=== PATIENT | male | born 1945 | race Caucasian/White ===

== ENCOUNTER 2018-08-15 17:32 | Inpatient (IN) | payer MEDICARE ==
[2018-08-15 17:54] LABS: ADD MAN DIFF? NO
[2018-08-15 17:59] LABS: BASOPHILS % 0.6 % (0.0-2.0); EOSINOPHILS % 0.1 % (0.0-7.0); HEMATOCRIT 42.1 % (42.0-52.0); HEMOGLOBIN 13.2 g/dl (14.0-18.0); LYMPHOCYTES # 0.7 10^3/ul (0.8-2.9); MEAN CORPUSCULAR HEMOGLOBIN 28.8 pg (29.0-33.0); MEAN CORPUSCULAR HGB CONC 31.4 g/dl (32.0-37.0); MEAN CORPUSCULAR VOLUME 91.7 fl (82.0-101.0); MEAN PLATELET VOLUME 10.4 fl (7.4-10.4); MONOCYTE # 0.4 10^3/ul (0.3-0.9); MONOCYTES % 5.3 % (0.0-11.0); NEUTROPHIL # 5.7 10^3/ul (1.6-7.5); NEUTROPHILS % 83.7 % (39.0-77.0); PLATELET COUNT 219 10^3/UL (140-415); RED BLOOD COUNT 4.59 10^6/ul (4.70-6.10); RED CELL DISTRIBUTION WIDTH 14.6 % (11.5-14.5)
[2018-08-15 17:59] LABS: WHITE BLOOD COUNT 6.8 10^3/ul (4.8-10.8)
[2018-08-15] MEDS: LACTATED RINGER'S 1,000 ML IV (18:03)
[2018-08-15 18:13] LABS: ADD UMIC YES; UR ASCORBIC ACID NEGATIVE (NEGATIVE); UR BILIRUBIN (Dip) NEGATIVE (NEGATIVE); UR BLOOD (Dip) NEGATIVE (NEGATIVE); UR CLARITY CLEAR (CLEAR); UR COLOR YELLOW (YELLOW); UR GLUCOSE (Dip) NEGATIVE (NEGATIVE); UR HYALINE CAST FEW /HPF (NONE SEEN); UR KETONES (Dip) 2+ mg/dL (NEGATIVE); UR LEUKOCYTE ESTERASE (Dip) NEGATIVE Leu/ul (NEGATIVE); UR MUCUS FEW /HPF (NONE SEEN); UR NITRITE (Dip) NEGATIVE (NEGATIVE); UR RBC 1 /HPF (0-5); UR SPECIFIC GRAVITY (Dip) 1.018 (1.003-1.030); UR TOTAL PROTEIN (Dip) 1+ mg/dl (NEGATIVE); UR UROBILINOGEN (Dip) NEGATIVE (NEGATIVE); UR WBC 1 /HPF (0-5)
[2018-08-15 18:18] LABS: INR 0.97; PARTIAL THROMBOPLASTIN TIME 31.9 Sec (23.0-35.0)
[2018-08-15 19:31] LABS: Allen Test ACCEPTAB; Arterial Base Excess -10.6 mmol/L (-3.0-3); Arterial Blood Gas Oxygen Sat 99.2 mmHG (95.0-100.0); Arterial COHb 0.5 % (0.0-3.0); Arterial Fraction of Oxyhgb 98.4 % (93.0-99.0); Arterial HCO3 15.2 mmol/L (22.0-26.0); Arterial MetHb 0.3 % (0.0-1.5); Arterial Total Hemglobin 13.3 g/dl (12.0-18.0); Arterial pCO2 33.8 mmhg (35-45); MODE NASAL CANNULA; Site Right Radial
[2018-08-15 21:21] LABS: ALANINE AMINOTRANSFERASE 14 IU/L (13-69); ALBUMIN 3.9 g/dl (3.3-4.9); ALBUMIN/GLOBULIN RATIO 1.08; ALKALINE PHOSPHATASE 66 IU/L (42-121); ANION GAP 16 (5-13); ASPARTATE AMINO TRANSFERASE 25 IU/L (15-46); BILIRUBIN,INDIRECT 0.2 mg/dl (0-1.1); BILIRUBIN,TOTAL 0.2 mg/dl (0.2-1.3); BLOOD UREA NITROGEN 8 mg/dl (7-20); CALCIUM 9.4 mg/dl (8.4-10.2); CARBON DIOXIDE 18 mmol/L (21-31); CHLORIDE 106 mmol/L (97-110); CREATININE 0.15 mg/dl (0.61-1.24); GLUCOSE 109 mg/dl (70-220); LIPASE 40 U/L (23-300); POTASSIUM 3.8 mmol/L (3.5-5.1); SODIUM 140 mmol/L (135-144); TOTAL PROTEIN 7.5 g/dl (6.1-8.1)
[2018-08-15 21:34] LABS: TROPONIN-I 0.027 ng/ml (0.000-0.120)
[2018-08-15] MEDS ORDERED: ACETAMINOPHEN 325 MG TAB PO (23:00)
[2018-08-15] MEDS ORDERED: ONDANSETRON 4 MG INJ IV (23:00)
[2018-08-15] MEDS: IPRATROPIUM 0.03% 30 ML NASAL SPRAY NASAL (23:00)
[2018-08-15] MEDS ORDERED: HYDROCODONE/APAP (10/325) TAB PO (23:00)
[2018-08-15] MEDS ORDERED: NACL 0.9% 3 ML SYG IV (23:00)
[2018-08-16] MEDS: DEXTROSE 5%-0.45% NACL 1,000 ML IV ×3 (00:45→23:44)
[2018-08-16] MEDS: PANTOPRAZOLE (EC) 40 MG TAB PO (05:46)
[2018-08-16 07:17] LABS: ADD MAN DIFF? NO
[2018-08-16 07:21] LABS: BASOPHIL # 0.1 10^3/ul (0.0-0.1); BASOPHILS % 0.4 % (0.0-2.0); HEMOGLOBIN 12.6 g/dl (14.0-18.0); LYMPHOCYTES # 0.7 10^3/ul (0.8-2.9); MEAN CORPUSCULAR HGB CONC 30.7 g/dl (32.0-37.0); MEAN CORPUSCULAR VOLUME 94.3 fl (82.0-101.0); MEAN PLATELET VOLUME 10.7 fl (7.4-10.4); MONOCYTE # 0.7 10^3/ul (0.3-0.9); MONOCYTES % 5.1 % (0.0-11.0); PLATELET COUNT 220 10^3/UL (140-415); RED BLOOD COUNT 4.35 10^6/ul (4.70-6.10); RED CELL DISTRIBUTION WIDTH 14.6 % (11.5-14.5)
[2018-08-16 07:21] LABS: WHITE BLOOD COUNT 13.5 10^3/ul (4.8-10.8)
[2018-08-16] MEDS: LEVOTHYROXINE 50 MCG TAB PO (07:25)
[2018-08-16 07:52] LABS: ALANINE AMINOTRANSFERASE 12 IU/L (13-69); ALBUMIN/GLOBULIN RATIO 1.37; ALKALINE PHOSPHATASE 70 IU/L (42-121); ANION GAP 22 (5-13); ASPARTATE AMINO TRANSFERASE 24 IU/L (15-46); BILIRUBIN,INDIRECT 0.1 mg/dl (0-1.1); BILIRUBIN,TOTAL 0.1 mg/dl (0.2-1.3); BLOOD UREA NITROGEN 7 mg/dl (7-20); CALCIUM 9.5 mg/dl (8.4-10.2); CARBON DIOXIDE 13 mmol/L (21-31); CHLORIDE 106 mmol/L (97-110); CHOL/HDL RATIO 2.7 RATIO; CHOLESTEROL 157 mg/dl (100-200); CREATININE 0.17 mg/dl (0.61-1.24); GLUCOSE 203 mg/dl (70-220); HDL CHOLESTEROL 57 mg/dl (31-75); LDL CHOLESTEROL,CALCULATED 77 mg/dl; MAGNESIUM 1.7 mg/dl (1.7-2.5); PHOSPHORUS 2.7 mg/dl (2.5-4.9); POTASSIUM 3.3 mmol/L (3.5-5.1); SODIUM 141 mmol/L (135-144); TOTAL PROTEIN 6.9 g/dl (6.1-8.1); TRIGLYCERIDES 115 mg/dl (0-149)
[2018-08-16] MEDS ORDERED: HEPARIN 5,000 UNIT/0.5 ML VIAL (08:38)
[2018-08-16] MEDS: BETAMETHASONE/CLOTRIMAZOLE 15 GM CR TOP ×2 (08:40→20:57)
[2018-08-16] MEDS: IPRATROPIUM 0.03% 30 ML NASAL SPRAY NASAL ×2 (08:40→20:56)
[2018-08-16] MEDS: NYSTATIN 15 GM CR TOP ×2 (08:42→20:57)
[2018-08-16] MEDS: HEPARIN 5,000 UNIT/1 ML VIAL SC (08:49)
[2018-08-16] MEDS: GABAPENTIN 300 MG CAP PO ×2 (09:00→20:36)
[2018-08-16] MEDS: MULTIVITAMINS THERAPEUTIC TAB PO (09:00)
[2018-08-16] MEDS: METOPROLOL (XL) 25 MG TAB PO ×2 (09:00→20:36)
[2018-08-16] MEDS: CITALOPRAM 20 MG TAB PO (09:00)
[2018-08-16 09:33] LABS: AADO2 Arterial 19.9 mmHg (7.0-24.0); Allen Test ACCEPTAB; Arterial Base Excess -8.6 mmol/L (-3.0-3); Arterial Blood Gas Oxygen Sat 97.7 mmHG (95.0-100.0); Arterial COHb 0.5 % (0.0-3.0); Arterial Fraction of Oxyhgb 96.8 % (93.0-99.0); Arterial HCO3 18.4 mmol/L (22.0-26.0); Arterial MetHb 0.4 % (0.0-1.5); Arterial Total Hemglobin 12.9 g/dl (12.0-18.0); Arterial pCO2 43.7 mmhg (35-45); MODE NASAL CANNULA; Site Right Radial
[2018-08-16] MEDS: METHYLPREDNISOLONE 125 MG INJ IV (10:54)
[2018-08-16] MEDS: ALBUTEROL/IPRATROPIUM (NEB) 3 ML AMP HHN (13:31)
[2018-08-16] MEDS: MAGNESIUM SULFATE 2 GM/50 ML 50 ML IVPB (15:33)
[2018-08-16] MEDS: POTASSIUM CHLORIDE 100 ML IVPB (17:10)
[2018-08-16] MEDS: IOHEXOL 100 ML (17:59)
[2018-08-16] MEDS: SOD CHLORIDE 0.9% 100 ML (17:59)
[2018-08-16] MEDS: LIDOCAINE 1% (MPF) 5 ML VIAL SC (19:30)
[2018-08-16] MEDS: ASPIRIN 81 MG TAB PO (20:36)
[2018-08-16] MEDS: ATORVASTATIN 20 MG TAB PO (20:36)
[2018-08-17] MEDS: PANTOPRAZOLE (EC) 40 MG TAB PO (05:33)
[2018-08-17] MEDS: LEVOTHYROXINE 50 MCG TAB PO (06:48)
[2018-08-17 07:01] LABS: ADD MAN DIFF? NO
[2018-08-17 07:05] LABS: WHITE BLOOD COUNT 9.2 10^3/ul (4.8-10.8)
[2018-08-17 07:05] LABS: ABNORMAL IP MESSAGE 1; BASOPHILS % 0.1 % (0.0-2.0); HEMATOCRIT 37.2 % (42.0-52.0); HEMOGLOBIN 11.9 g/dl (14.0-18.0); LYMPHOCYTES # 0.5 10^3/ul (0.8-2.9); LYMPHOCYTES % 5.4 % (15.0-51.0); MEAN CORPUSCULAR HEMOGLOBIN 29.1 pg (29.0-33.0); MEAN PLATELET VOLUME 10.6 fl (7.4-10.4); MONOCYTE # 0.7 10^3/ul (0.3-0.9); NEUTROPHILS % 86.3 % (39.0-77.0); PLATELET COUNT 200 10^3/UL (140-415); POSITIVE DIFF @See below; RED BLOOD COUNT 4.09 10^6/ul (4.70-6.10); RED CELL DISTRIBUTION WIDTH 14.8 % (11.5-14.5)
[2018-08-17 07:45] LABS: ALANINE AMINOTRANSFERASE 17 IU/L (13-69); ALBUMIN 3.5 g/dl (3.3-4.9); ALBUMIN/GLOBULIN RATIO 1.12; ALKALINE PHOSPHATASE 60 IU/L (42-121); ANION GAP 8 (5-13); ASPARTATE AMINO TRANSFERASE 19 IU/L (15-46); BILIRUBIN,INDIRECT 0.2 mg/dl (0-1.1); BILIRUBIN,TOTAL 0.2 mg/dl (0.2-1.3); BLOOD UREA NITROGEN 5 mg/dl (7-20); CALCIUM 9.3 mg/dl (8.4-10.2); CARBON DIOXIDE 28 mmol/L (21-31); CHLORIDE 106 mmol/L (97-110); GLUCOSE 187 mg/dl (70-220); MAGNESIUM 2.2 mg/dl (1.7-2.5); POTASSIUM 3.7 mmol/L (3.5-5.1); SODIUM 142 mmol/L (135-144); TOTAL PROTEIN 6.6 g/dl (6.1-8.1)
[2018-08-17 07:49] LABS: CREATININE < 0.15 mg/dl (0.61-1.24)
[2018-08-17] MEDS: CITALOPRAM 20 MG TAB PO (08:00)
[2018-08-17] MEDS: MULTIVITAMINS THERAPEUTIC TAB PO (08:01)
[2018-08-17] MEDS: METOPROLOL (XL) 25 MG TAB PO ×2 (08:01→21:00)
[2018-08-17] MEDS: GABAPENTIN 300 MG CAP PO ×2 (08:01→21:00)
[2018-08-17] MEDS: IPRATROPIUM 0.03% 30 ML NASAL SPRAY NASAL ×2 (08:25→21:38)
[2018-08-17] MEDS: BETAMETHASONE/CLOTRIMAZOLE 15 GM CR TOP ×2 (08:25→21:38)
[2018-08-17] MEDS: NYSTATIN 15 GM CR TOP ×2 (08:26→21:39)
[2018-08-17] MEDS: ENOXAPARIN 60 MG/0.6 ML SYG SC (08:37)
[2018-08-17] MEDS ORDERED: ENOXAPARIN 30 MG/0.3 ML SYG SC (09:00)
[2018-08-17] MEDS: DEXTROSE 5%-0.45% NACL 1,000 ML IV ×2 (09:44→19:44)
[2018-08-17] MEDS: ATORVASTATIN 20 MG TAB PO (21:00)
[2018-08-17] MEDS: ASPIRIN 81 MG TAB PO (21:00)
[2018-08-18] MEDS: DEXTROSE 5%-0.45% NACL 1,000 ML IV ×3 (03:16→14:19)
[2018-08-18] MEDS: PANTOPRAZOLE (EC) 40 MG TAB PO (05:08)
[2018-08-18] MEDS: LEVOTHYROXINE 50 MCG TAB PO (07:19)
[2018-08-18] MEDS: NYSTATIN 15 GM CR TOP ×2 (09:00→21:00)
[2018-08-18] MEDS: MULTIVITAMINS THERAPEUTIC TAB PO (09:00)
[2018-08-18] MEDS: GABAPENTIN 300 MG CAP PO ×2 (09:00→21:00)
[2018-08-18] MEDS: METOPROLOL (XL) 25 MG TAB PO ×2 (09:00→21:00)
[2018-08-18] MEDS: CITALOPRAM 20 MG TAB PO (09:00)
[2018-08-18] MEDS: ENOXAPARIN 40 MG/0.4 ML SYG SC (09:04)
[2018-08-18] MEDS: BALSAM PERU/CASTOR OIL 60 GM TUBE TOP (09:05)
[2018-08-18] MEDS: IPRATROPIUM 0.03% 30 ML NASAL SPRAY NASAL ×2 (09:05→21:32)
[2018-08-18] MEDS: BETAMETHASONE/CLOTRIMAZOLE 15 GM CR TOP ×2 (09:06→21:31)
[2018-08-18] MEDS: ATORVASTATIN 20 MG TAB PO (21:00)
[2018-08-18] MEDS: ASPIRIN 81 MG TAB PO (21:00)
[2018-08-19] MEDS: DEXTROSE 5%-0.45% NACL 1,000 ML IV (01:47)
[2018-08-19] MEDS: LEVOTHYROXINE 50 MCG TAB PO (05:36)
[2018-08-19] MEDS: PANTOPRAZOLE (EC) 40 MG TAB PO (05:36)
[2018-08-19 06:51] LABS: ANION GAP 10 (5-13); BLOOD UREA NITROGEN 4 mg/dl (7-20); CALCIUM 8.9 mg/dl (8.4-10.2); CARBON DIOXIDE 38 mmol/L (21-31); CHLORIDE 88 mmol/L (97-110); GLUCOSE 301 mg/dl (70-220); MAGNESIUM 1.6 mg/dl (1.7-2.5); PHOSPHORUS 1.4 mg/dl (2.5-4.9); SODIUM 136 mmol/L (135-144)
[2018-08-19 06:58] LABS: CREATININE < 0.15 mg/dl (0.61-1.24); POTASSIUM 1.7 mmol/L (3.5-5.1)
[2018-08-19 07:55] LABS: ANION GAP 13 (5-13); BLOOD UREA NITROGEN 3 mg/dl (7-20); CALCIUM 8.9 mg/dl (8.4-10.2); CARBON DIOXIDE 38 mmol/L (21-31); CHLORIDE 89 mmol/L (97-110); GLUCOSE 294 mg/dl (70-220); MAGNESIUM 1.7 mg/dl (1.7-2.5); SODIUM 140 mmol/L (135-144)
[2018-08-19 08:04] LABS: CREATININE < 0.15 mg/dl (0.61-1.24); POTASSIUM 1.7 mmol/L (3.5-5.1)
[2018-08-19] MEDS ORDERED: POTASSIUM CHLORIDE 100 ML IVPB (08:57)
[2018-08-19] MEDS: NYSTATIN 15 GM CR TOP ×2 (09:00→20:32)
[2018-08-19] MEDS: POTASSIUM CHLORIDE 100 ML IVPB ×4 (09:01→15:30)
[2018-08-19] MEDS: IPRATROPIUM 0.03% 30 ML NASAL SPRAY NASAL ×2 (10:05→21:00)
[2018-08-19] MEDS: BETAMETHASONE/CLOTRIMAZOLE 15 GM CR TOP ×2 (10:59→21:22)
[2018-08-19] MEDS: ENOXAPARIN 40 MG/0.4 ML SYG SC ×2 (11:00→14:00)
[2018-08-19] MEDS ORDERED: D5-NS + KCL 40 MEQ 1,000 ML IV (11:00)
[2018-08-19] MEDS: BALSAM PERU/CASTOR OIL 60 GM TUBE TOP (11:09)
[2018-08-19] MEDS: MAGNESIUM SULFATE 3 GM in DEXTROSE 5% 100 ML IVPB (11:51)
[2018-08-19] MEDS: SOD CHLORIDE 0.9% 1,000 ML IV ×2 (11:53→15:30)
[2018-08-19] MEDS: POTASSIUM CHLORIDE 40 MEQ in DEXTROSE 5%-0.9% NACL 1,000 ML IV ×2 (11:58→20:06)
[2018-08-19 12:14] LABS: Allen Test ACCEPTAB; Arterial Base Excess 5.6 mmol/L (-3.0-3); Arterial Blood Gas Oxygen Sat 98.9 mmHG (95.0-100.0); Arterial COHb 0.2 % (0.0-3.0); Arterial Fraction of Oxyhgb 98.2 % (93.0-99.0); Arterial HCO3 40.4 mmol/L (22.0-26.0); Arterial MetHb 0.5 % (0.0-1.5); Arterial Total Hemglobin 12.9 g/dl (12.0-18.0); Arterial pCO2 144.6 mmhg (35-45); MODE NASAL CANNULA; Site Right Radial
[2018-08-19] MEDS ORDERED: DEXTROSE 50% 50 ML SYRINGE IV ×2 (12:30)
[2018-08-19] MEDS ORDERED: GLUCOSE GEL 15 GRAM TUBE BUCCAL (12:30)
[2018-08-19] MEDS ORDERED: GLUCOSE GEL 15 GRAM TUBE PO ×2 (12:30)
[2018-08-19] MEDS ORDERED: GLUCAGON 1 MG INJ IM (12:30)
[2018-08-19] MEDS: INSULIN ASPART [NOVOLOG] 3 ML PEN SC ×3 (13:22→20:35)
[2018-08-19] MEDS: FENTAnyl (DRIP) 1000 mcg/100mL 100 ML IV (14:07)
[2018-08-19 14:23] LABS: LACTIC ACID 4.3 mmol/L (0.5-2.0)
[2018-08-19 14:28] LABS: AADO2 Arterial 283.2 mmHg (7.0-24.0); Allen Test ACCEPTAB; Arterial Base Excess 4.1 mmol/L (-3.0-3); Arterial Blood Gas Oxygen Sat 99.6 mmHG (95.0-100.0); Arterial COHb 0.1 % (0.0-3.0); Arterial Fraction of Oxyhgb 99.2 % (93.0-99.0); Arterial HCO3 28.4 mmol/L (22.0-26.0); Arterial MetHb 0.3 % (0.0-1.5); Arterial Total Hemglobin 12.7 g/dl (12.0-18.0); Arterial pCO2 41.2 mmhg (35-45); MODE VENT - AC; Site Right Radial
[2018-08-19] MEDS ORDERED: VANCOMYCIN IV PER PHARMACY XX (15:00)
[2018-08-19] MEDS: NORepinephrine 8MG/250 ML (PMX 250 ML IV (16:00)
[2018-08-19] MEDS: ETOMIDATE 20 MG INJ IV (16:00)
[2018-08-19] MEDS: SUCCINYLCHOLINE CHLORIDE 100 MG/5 ML SYG IV (16:00)
[2018-08-19] MEDS: VANCOMYCIN 1 GM 250 ML IVPB (16:56)
[2018-08-19] MEDS: PIPER-TAZO 3.375 GM IV (PMX) 100 ML IVPB ×2 (17:33→23:51)
[2018-08-19 19:08] LABS: ANION GAP 8 (5-13); CARBON DIOXIDE 29 mmol/L (21-31); CHLORIDE 97 mmol/L (97-110); SODIUM 134 mmol/L (135-144)
[2018-08-19 19:17] LABS: POTASSIUM 2.7 mmol/L (3.5-5.1)
[2018-08-19 19:18] LABS: LACTIC ACID 6.3 mmol/L (0.5-2.0)
[2018-08-19] MEDS: POTASSIUM CHLORIDE 50 ML IVPB ×3 (20:18→21:24)
[2018-08-19] MEDS ORDERED: PHENYLephrine 20MG IN 250 ML 250 ML (23:42)
[2018-08-19] MEDS: SOD CHLORIDE 0.9% 500 ML IV (23:52)
[2018-08-20 01:05] LABS: LACTIC ACID 7.9 mmol/L (0.5-2.0)
[2018-08-20] MEDS: INSULIN ASPART [NOVOLOG] 3 ML PEN SC ×4 (01:29→18:11)
[2018-08-20] MEDS ORDERED: ACCU-CHEK XX (02:00)
[2018-08-20] MEDS: PHENYLephrine 40 MG in DEXTROSE 5% 496 ML IV ×2 (02:52→20:08)
[2018-08-20] MEDS: VANCOMYCIN 500MG/NS (PMX) 100 ML IVPB ×2 (03:41→18:43)
[2018-08-20] MEDS: POTASSIUM CHLORIDE 40 MEQ in DEXTROSE 5%-0.9% NACL 1,000 ML IV ×3 (03:41→21:57)
[2018-08-20] MEDS: PIPER-TAZO 3.375 GM IV (PMX) 100 ML IVPB ×4 (05:26→23:38)
[2018-08-20] MEDS: PANTOPRAZOLE 40 MG INJ IV (05:26)
[2018-08-20 05:51] LABS: ABNORMAL IP MESSAGE 1; HEMATOCRIT 39.8 % (42.0-52.0); HEMOGLOBIN 12.9 g/dl (14.0-18.0); MEAN CORPUSCULAR HEMOGLOBIN 28.9 pg (29.0-33.0); MEAN CORPUSCULAR HGB CONC 32.4 g/dl (32.0-37.0); MEAN CORPUSCULAR VOLUME 89.2 fl (82.0-101.0); MEAN PLATELET VOLUME 11.7 fl (7.4-10.4); PLATELET COUNT 191 10^3/UL (140-415); POSITIVE DIFF @See below; RED BLOOD COUNT 4.46 10^6/ul (4.70-6.10); RED CELL DISTRIBUTION WIDTH 14.1 % (11.5-14.5)
[2018-08-20 05:51] LABS: WHITE BLOOD COUNT 24.7 10^3/ul (4.8-10.8)
[2018-08-20 05:58] LABS: ADD MAN DIFF? YES
[2018-08-20 06:22] LABS: ALANINE AMINOTRANSFERASE 21 IU/L (13-69); ALBUMIN 2.9 g/dl (3.3-4.9); ALBUMIN/GLOBULIN RATIO 1.16; ALKALINE PHOSPHATASE 68 IU/L (42-121); ANION GAP 11 (5-13); ASPARTATE AMINO TRANSFERASE 44 IU/L (15-46); BILIRUBIN,INDIRECT 0.6 mg/dl (0-1.1); BILIRUBIN,TOTAL 0.6 mg/dl (0.2-1.3); BLOOD UREA NITROGEN 9 mg/dl (7-20); CALCIUM 8.5 mg/dl (8.4-10.2); CARBON DIOXIDE 23 mmol/L (21-31); CHLORIDE 106 mmol/L (97-110); CREATININE 0.19 mg/dl (0.61-1.24); GLUCOSE 188 mg/dl (70-220); POTASSIUM 5.1 mmol/L (3.5-5.1); SODIUM 140 mmol/L (135-144); TOTAL PROTEIN 5.4 g/dl (6.1-8.1)
[2018-08-20 06:25] LABS: MAGNESIUM 2.1 mg/dl (1.7-2.5)
[2018-08-20 06:29] LABS: PHOSPHORUS < 0.5 mg/dl (2.5-4.9)
[2018-08-20 06:37] LABS: AMMONIA 13 umol/l (9-30)
[2018-08-20 07:27] LABS: ANISOCYTOSIS 1+ (0-0); BAND NEUTROPHILS #M 7.6 10^3/ul (0.0-0.6); BAND NEUTROPHILS % (M) 31 % (0-4); BURR CELLS 2+ (0-0); LYMPHOCYTES #M 0.7 10^3/ul (0.8-2.9); LYMPHOCYTES % (M) 3 % (15-51); MONOCYTE #M 1.2 10^3/ul (0.3-0.9); MONOCYTES % (M) 5 % (0-11); PLATELET ESTIMATE NORMAL; POIKILOCYTOSIS 2+ (0-0); SEG NEUT #M 16.9 10^3/ul (1.6-7.5); SEGMENTED NEUTROPHILS (M) % 61 % (39-77); SMUDGE%M 16 % (0-0)
[2018-08-20] MEDS: NYSTATIN 15 GM CR TOP ×2 (08:20→21:55)
[2018-08-20] MEDS: BETAMETHASONE/CLOTRIMAZOLE 15 GM CR TOP ×2 (08:20→21:55)
[2018-08-20] MEDS: FENTAnyl (DRIP) 1000 mcg/100mL 100 ML IV (08:30)
[2018-08-20] MEDS: BALSAM PERU/CASTOR OIL 60 GM TUBE TOP (08:41)
[2018-08-20] MEDS: ENOXAPARIN 40 MG/0.4 ML SYG SC (08:41)
[2018-08-20] MEDS: IPRATROPIUM 0.03% 30 ML NASAL SPRAY NASAL ×2 (09:00→21:00)
[2018-08-20] MEDS: HYDROCORTISONE 100 MG INJ IV ×3 (12:52→23:38)
[2018-08-20] MEDS ORDERED: DEXTROSE 50% 50 ML SYRINGE IV ×2 (18:30)
[2018-08-20] MEDS: ACCU-CHEK XX ×6 (18:30→23:38)
[2018-08-20] MEDS: INSULIN HUMAN REGULAR 100 UNIT in SOD CHLORIDE 0.9% 99 ML IV (19:39)
[2018-08-21] MEDS: ACCU-CHEK XX ×19 (00:16→23:43)
[2018-08-21] MEDS: VANCOMYCIN 500MG/NS (PMX) 100 ML IVPB (04:13)
[2018-08-21 04:18] LABS: VANCOMYCIN,TROUGH 9.8 ug/ml (10.0-20.0)
[2018-08-21] MEDS: HYDROCORTISONE 100 MG INJ IV ×4 (05:11→23:27)
[2018-08-21] MEDS: PANTOPRAZOLE 40 MG INJ IV (05:11)
[2018-08-21] MEDS: PIPER-TAZO 3.375 GM IV (PMX) 100 ML IVPB ×4 (05:11→23:27)
[2018-08-21 05:12] LABS: Allen Test ACCEPTAB; Arterial Base Excess 0.2 mmol/L (-3.0-3); Arterial Blood Gas Oxygen Sat 98.4 mmHG (95.0-100.0); Arterial COHb 0.3 % (0.0-3.0); Arterial Fraction of Oxyhgb 97.7 % (93.0-99.0); Arterial HCO3 24.4 mmol/L (22.0-26.0); Arterial MetHb 0.4 % (0.0-1.5); Arterial Total Hemglobin 12.6 g/dl (12.0-18.0); Arterial pCO2 38.1 mmhg (35-45); MODE VENT - AC; Site Right Radial
[2018-08-21] MEDS: FENTAnyl (DRIP) 1000 mcg/100mL 100 ML IV ×3 (05:26→23:18)
[2018-08-21 06:19] LABS: ABNORMAL IP MESSAGE 1; HEMATOCRIT 37.6 % (42.0-52.0); HEMOGLOBIN 12.3 g/dl (14.0-18.0); MEAN CORPUSCULAR HEMOGLOBIN 28.7 pg (29.0-33.0); MEAN CORPUSCULAR HGB CONC 32.7 g/dl (32.0-37.0); MEAN CORPUSCULAR VOLUME 87.6 fl (82.0-101.0); MEAN PLATELET VOLUME 11.6 fl (7.4-10.4); PLATELET COUNT 190 10^3/UL (140-415); POSITIVE DIFF @See below; RED BLOOD COUNT 4.29 10^6/ul (4.70-6.10); RED CELL DISTRIBUTION WIDTH 15.1 % (11.5-14.5)
[2018-08-21 06:19] LABS: WHITE BLOOD COUNT 26.4 10^3/ul (4.8-10.8)
[2018-08-21 06:38] LABS: ADD MAN DIFF? YES
[2018-08-21 07:00] LABS: LACTIC ACID 3.2 mmol/L (0.5-2.0)
[2018-08-21 07:03] LABS: ALANINE AMINOTRANSFERASE 41 IU/L (13-69); ALBUMIN 2.8 g/dl (3.3-4.9); ALBUMIN/GLOBULIN RATIO 0.96; ALKALINE PHOSPHATASE 101 IU/L (42-121); ANION GAP 7 (5-13); ASPARTATE AMINO TRANSFERASE 36 IU/L (15-46); BILIRUBIN,INDIRECT 0.3 mg/dl (0-1.1); BILIRUBIN,TOTAL 0.3 mg/dl (0.2-1.3); BLOOD UREA NITROGEN 8 mg/dl (7-20); CALCIUM 8.4 mg/dl (8.4-10.2); CARBON DIOXIDE 28 mmol/L (21-31); CHLORIDE 105 mmol/L (97-110); GLUCOSE 110 mg/dl (70-220); POTASSIUM 3.3 mmol/L (3.5-5.1); SODIUM 140 mmol/L (135-144); T3 UPTAKE 45.3 % (23.5-40.5); T4 (THYROXINE) 6.4 ug/dl (5.5-11.0); TOTAL PROTEIN 5.7 g/dl (6.1-8.1)
[2018-08-21 07:19] LABS: CREATININE < 0.15 mg/dl (0.61-1.24)
[2018-08-21 08:12] LABS: ANISOCYTOSIS 1+ (0-0); BAND NEUTROPHILS #M 8.4 10^3/ul (0.0-0.6); BAND NEUTROPHILS % (M) 32 % (0-4); BURR CELLS 1+ (0-0); LYMPHOCYTES #M 0.5 10^3/ul (0.8-2.9); LYMPHOCYTES % (M) 2 % (15-51); MONOCYTE #M 0.2 10^3/ul (0.3-0.9); MONOCYTES % (M) 1 % (0-11); OVALOCYTES 1+ (0-0); PLATELET ESTIMATE NORMAL; POIKILOCYTOSIS 3+ (0-0); SEG NEUT #M 19.4 10^3/ul (1.6-7.5); SEGMENTED NEUTROPHILS (M) % 65 % (39-77); SMUDGE%M 5 % (0-0)
[2018-08-21] MEDS: ENOXAPARIN 40 MG/0.4 ML SYG SC (08:35)
[2018-08-21] MEDS: LIDOCAINE 1% (MPF) 5 ML VIAL SC ×2 (10:00→13:30)
[2018-08-21] MEDS: NYSTATIN 15 GM CR TOP ×2 (10:00→20:39)
[2018-08-21] MEDS: BALSAM PERU/CASTOR OIL 60 GM TUBE TOP (10:00)
[2018-08-21] MEDS: BETAMETHASONE/CLOTRIMAZOLE 15 GM CR TOP ×2 (10:30→20:39)
[2018-08-21] MEDS ORDERED: morphine 2 MG INJ IV (10:48)
[2018-08-21] MEDS: IPRATROPIUM 0.03% 30 ML NASAL SPRAY NASAL ×2 (11:00→20:38)
[2018-08-21] MEDS ORDERED: POTASSIUM CHLORIDE 50 ML IVPB (11:00)
[2018-08-21] MEDS: POTASSIUM CHLORIDE 100 ML IVPB ×2 (11:09→13:55)
[2018-08-21] MEDS: morphine 2 MG INJ IV (11:09)
[2018-08-21] MEDS ORDERED: MIDAZOLAM (DRIP) 50 mg/50 mL 50 ML IV (14:00)
[2018-08-21] MEDS: INSULIN ASPART [NOVOLOG] 3 ML PEN SC ×3 (17:00→21:00)
[2018-08-21] MEDS: VANCOMYCIN 750 MG in SOD CHLORIDE 0.9% 150 ML IVPB (17:00)
[2018-08-21] MEDS: INSULIN GLARGINE [LANTus] (100 UNITS/ML) SYG SC (17:00)
[2018-08-21] MEDS: POTASSIUM CHLORIDE 40 MEQ in DEXTROSE 5%-0.9% NACL 1,000 ML IV ×2 (18:00→19:00)
[2018-08-21] MEDS: MIDAZOLAM (DRIP) 50 mg/50 mL 50 ML IV (19:41)
[2018-08-21] MEDS: PHENYLephrine 40 MG in DEXTROSE 5% 496 ML IV (20:30)
[2018-08-22] MEDS: INSULIN ASPART [NOVOLOG] 3 ML PEN SC ×6 (00:38→20:27)
[2018-08-22] MEDS: VANCOMYCIN 750 MG in SOD CHLORIDE 0.9% 150 ML IVPB ×2 (04:26→17:28)
[2018-08-22 05:12] LABS: AADO2 Arterial 118.2 mmHg (7.0-24.0); Allen Test ACCEPTAB; Arterial Base Excess 1.3 mmol/L (-3.0-3); Arterial Blood Gas Oxygen Sat 99.2 mmHG (95.0-100.0); Arterial COHb 0.4 % (0.0-3.0); Arterial Fraction of Oxyhgb 98.3 % (93.0-99.0); Arterial HCO3 26.5 mmol/L (22.0-26.0); Arterial MetHb 0.5 % (0.0-1.5); Arterial Total Hemglobin 11.3 g/dl (12.0-18.0); Arterial pCO2 44.5 mmhg (35-45); MODE VENT - AC; Site Right Radial
[2018-08-22] MEDS: HYDROCORTISONE 100 MG INJ IV ×4 (05:34→23:14)
[2018-08-22] MEDS: PIPER-TAZO 3.375 GM IV (PMX) 100 ML IVPB ×4 (05:35→23:15)
[2018-08-22] MEDS: PANTOPRAZOLE 40 MG INJ IV (05:36)
[2018-08-22] MEDS: PHENYLephrine 40 MG in DEXTROSE 5% 496 ML IV ×2 (05:44→19:05)
[2018-08-22 05:46] LABS: ABNORMAL IP MESSAGE 1; HEMATOCRIT 33.6 % (42.0-52.0); HEMOGLOBIN 11.1 g/dl (14.0-18.0); MEAN CORPUSCULAR HEMOGLOBIN 28.9 pg (29.0-33.0); MEAN CORPUSCULAR VOLUME 87.5 fl (82.0-101.0); MEAN PLATELET VOLUME 11.8 fl (7.4-10.4); PLATELET COUNT 173 10^3/UL (140-415); POSITIVE DIFF @See below; RED BLOOD COUNT 3.84 10^6/ul (4.70-6.10); RED CELL DISTRIBUTION WIDTH 14.9 % (11.5-14.5)
[2018-08-22 05:46] LABS: WHITE BLOOD COUNT 21.8 10^3/ul (4.8-10.8)
[2018-08-22 05:52] LABS: ADD MAN DIFF? YES
[2018-08-22 05:59] LABS: LACTIC ACID 1.7 mmol/L (0.5-2.0)
[2018-08-22 06:13] LABS: ANION GAP 8 (5-13); BLOOD UREA NITROGEN 6 mg/dl (7-20); CARBON DIOXIDE 28 mmol/L (21-31); CHLORIDE 107 mmol/L (97-110); CREATININE 0.18 mg/dl (0.61-1.24); GLUCOSE 184 mg/dl (70-220); SODIUM 143 mmol/L (135-144)
[2018-08-22 06:41] LABS: POTASSIUM 2.4 mmol/L (3.5-5.1)
[2018-08-22] MEDS: POTASSIUM CHLORIDE 100 ML IVPB ×4 (07:00→12:06)
[2018-08-22 07:25] LABS: BAND NEUTROPHILS #M 0.2 10^3/ul (0.0-0.6); BAND NEUTROPHILS % (M) 1 % (0-4); BURR CELLS 1+ (0-0); LYMPHOCYTES #M 0.6 10^3/ul (0.8-2.9); LYMPHOCYTES % (M) 3 % (15-51); MONOCYTE #M 0.4 10^3/ul (0.3-0.9); MONOCYTES % (M) 2 % (0-11); PLATELET ESTIMATE NORMAL; POIKILOCYTOSIS 1+ (0-0); SEG NEUT #M 20.5 10^3/ul (1.6-7.5); SEGMENTED NEUTROPHILS (M) % 94 % (39-77); SMUDGE%M 11 % (0-0)
[2018-08-22] MEDS: FENTAnyl (DRIP) 1000 mcg/100mL 100 ML IV ×2 (09:00→21:00)
[2018-08-22] MEDS: ENOXAPARIN 40 MG/0.4 ML SYG SC (09:32)
[2018-08-22] MEDS: NYSTATIN 15 GM CR TOP ×2 (09:37→20:21)
[2018-08-22] MEDS: BALSAM PERU/CASTOR OIL 60 GM TUBE TOP (09:37)
[2018-08-22] MEDS: BETAMETHASONE/CLOTRIMAZOLE 15 GM CR TOP ×2 (09:37→20:21)
[2018-08-22] MEDS: IPRATROPIUM 0.03% 30 ML NASAL SPRAY NASAL ×2 (09:38→20:21)
[2018-08-22] MEDS: INSULIN GLARGINE [LANTus] (100 UNITS/ML) SYG SC (09:44)
[2018-08-22 13:04] LABS: AADO2 Arterial 69.4 mmHg (7.0-24.0); Allen Test ACCEPTAB; Arterial Base Excess 1.7 mmol/L (-3.0-3); Arterial Blood Gas Oxygen Sat 99.2 mmHG (95.0-100.0); Arterial COHb 0.4 % (0.0-3.0); Arterial Fraction of Oxyhgb 98.3 % (93.0-99.0); Arterial HCO3 27.8 mmol/L (22.0-26.0); Arterial MetHb 0.5 % (0.0-1.5); Arterial Total Hemglobin 13.1 g/dl (12.0-18.0); Arterial pCO2 49.9 mmhg (35-45); Blood Gas PS 10; MODE VENT - CPAP; Site Right Radial
[2018-08-22 14:50] LABS: POTASSIUM 2.1 mmol/L (3.5-5.1)
[2018-08-22] MEDS ORDERED: POTASSIUM CHLORIDE 50 ML IVPB (16:00)
[2018-08-22] MEDS: POTASSIUM CHLORIDE 50 ML IVPB ×4 (16:14→23:14)
[2018-08-22] MEDS: POTASSIUM CHLORIDE 40 MEQ in DEXTROSE 5%-0.9% NACL 1,000 ML IV (16:14)
[2018-08-22] MEDS: MIDAZOLAM (DRIP) 50 mg/50 mL 50 ML IV (22:25)
[2018-08-23] MEDS: INSULIN ASPART [NOVOLOG] 3 ML PEN SC ×6 (00:35→20:44)
[2018-08-23] MEDS: ACCU-CHEK XX (00:36)
[2018-08-23] MEDS: VANCOMYCIN 750 MG in SOD CHLORIDE 0.9% 150 ML IVPB (03:48)
[2018-08-23] MEDS: PANTOPRAZOLE 40 MG INJ IV (05:22)
[2018-08-23] MEDS: PIPER-TAZO 3.375 GM IV (PMX) 100 ML IVPB ×3 (05:23→17:43)
[2018-08-23] MEDS: HYDROCORTISONE 100 MG INJ IV ×3 (05:23→17:44)
[2018-08-23] MEDS: INSULIN GLARGINE [LANTus] (100 UNITS/ML) SYG SC (08:42)
[2018-08-23] MEDS: ENOXAPARIN 40 MG/0.4 ML SYG SC (08:43)
[2018-08-23] MEDS: BETAMETHASONE/CLOTRIMAZOLE 15 GM CR TOP ×2 (08:45→20:42)
[2018-08-23] MEDS: BALSAM PERU/CASTOR OIL 60 GM TUBE TOP (08:45)
[2018-08-23] MEDS: NYSTATIN 15 GM CR TOP ×2 (08:46→20:42)
[2018-08-23 10:02] LABS: ADD MAN DIFF? NO
[2018-08-23 10:04] LABS: ABNORMAL IP MESSAGE 1; BASOPHILS % 0.1 % (0.0-2.0); HEMOGLOBIN 10.3 g/dl (14.0-18.0); LYMPHOCYTES # 0.4 10^3/ul (0.8-2.9); LYMPHOCYTES % 2.4 % (15.0-51.0); MEAN CORPUSCULAR HEMOGLOBIN 28.8 pg (29.0-33.0); MEAN CORPUSCULAR HGB CONC 33.2 g/dl (32.0-37.0); MEAN CORPUSCULAR VOLUME 86.6 fl (82.0-101.0); MEAN PLATELET VOLUME 11.2 fl (7.4-10.4); MONOCYTE # 0.8 10^3/ul (0.3-0.9); MONOCYTES % 5.1 % (0.0-11.0); NEUTROPHILS % 92.1 % (39.0-77.0); PLATELET COUNT 146 10^3/UL (140-415); POSITIVE DIFF @See below; RED BLOOD COUNT 3.58 10^6/ul (4.70-6.10); RED CELL DISTRIBUTION WIDTH 14.8 % (11.5-14.5)
[2018-08-23 10:04] LABS: WHITE BLOOD COUNT 15.2 10^3/ul (4.8-10.8)
[2018-08-23] MEDS: PHENYLephrine 40 MG in DEXTROSE 5% 496 ML IV ×2 (10:21→21:59)
[2018-08-23 10:34] LABS: ALANINE AMINOTRANSFERASE 29 IU/L (13-69); ALBUMIN 2.1 g/dl (3.3-4.9); ALBUMIN/GLOBULIN RATIO 0.91; ALKALINE PHOSPHATASE 92 IU/L (42-121); ANION GAP 3 (5-13); ASPARTATE AMINO TRANSFERASE 15 IU/L (15-46); BILIRUBIN,INDIRECT 0.2 mg/dl (0-1.1); BILIRUBIN,TOTAL 0.2 mg/dl (0.2-1.3); BLOOD UREA NITROGEN 7 mg/dl (7-20); CALCIUM 7.6 mg/dl (8.4-10.2); CARBON DIOXIDE 31 mmol/L (21-31); CHLORIDE 106 mmol/L (97-110); CREATININE 0.17 mg/dl (0.61-1.24); GLUCOSE 180 mg/dl (70-220); SODIUM 140 mmol/L (135-144); TOTAL PROTEIN 4.4 g/dl (6.1-8.1)
[2018-08-23 10:37] LABS: POTASSIUM 2.4 mmol/L (3.5-5.1)
[2018-08-23] MEDS: FENTAnyl (DRIP) 1000 mcg/100mL 100 ML IV ×2 (11:07→21:36)
[2018-08-23] MEDS: POTASSIUM CHLORIDE 100 ML IVPB ×4 (11:37→17:52)
[2018-08-23] MEDS: POTASSIUM CHLORIDE 40 MEQ in DEXTROSE 5%-0.9% NACL 1,000 ML IV (13:21)
[2018-08-23] MEDS: IPRATROPIUM 0.03% 30 ML NASAL SPRAY NASAL ×2 (13:59→20:41)
[2018-08-23] MEDS ORDERED: POTASSIUM CHLORIDE 0 ML (17:27)
[2018-08-23] MEDS ORDERED: POTASSIUM CHLORIDE 20 MEQ in SOD CHLORIDE 0.9% 100 ML IV (18:00)
[2018-08-23 18:07] LABS: ANION GAP 1 (5-13); BLOOD UREA NITROGEN 6 mg/dl (7-20); CALCIUM 7.6 mg/dl (8.4-10.2); CARBON DIOXIDE 32 mmol/L (21-31); CHLORIDE 107 mmol/L (97-110); CREATININE 0.16 mg/dl (0.61-1.24); GLUCOSE 185 mg/dl (70-220); POTASSIUM 3.8 mmol/L (3.5-5.1); SODIUM 140 mmol/L (135-144)
[2018-08-23] MEDS: MIDAZOLAM (DRIP) 50 mg/50 mL 50 ML IV (21:35)
[2018-08-24] MEDS: PIPER-TAZO 3.375 GM IV (PMX) 100 ML IVPB ×3 (00:24→12:25)
[2018-08-24] MEDS: HYDROCORTISONE 100 MG INJ IV ×3 (00:25→12:25)
[2018-08-24] MEDS: INSULIN ASPART [NOVOLOG] 3 ML PEN SC ×4 (00:27→12:55)
[2018-08-24 05:01] LABS: ADD MAN DIFF? NO
[2018-08-24 05:06] LABS: WHITE BLOOD COUNT 11.9 10^3/ul (4.8-10.8)
[2018-08-24 05:06] LABS: ABNORMAL IP MESSAGE 1; BASOPHILS % 0.1 % (0.0-2.0); HEMATOCRIT 29.6 % (42.0-52.0); HEMOGLOBIN 9.8 g/dl (14.0-18.0); LYMPHOCYTES # 0.5 10^3/ul (0.8-2.9); LYMPHOCYTES % 3.9 % (15.0-51.0); MEAN CORPUSCULAR HEMOGLOBIN 28.6 pg (29.0-33.0); MEAN CORPUSCULAR HGB CONC 33.1 g/dl (32.0-37.0); MEAN CORPUSCULAR VOLUME 86.3 fl (82.0-101.0); MEAN PLATELET VOLUME 11.4 fl (7.4-10.4); MONOCYTE # 1.2 10^3/ul (0.3-0.9); MONOCYTES % 10.4 % (0.0-11.0); NEUTROPHIL # 10.1 10^3/ul (1.6-7.5); NEUTROPHILS % 85.1 % (39.0-77.0); PLATELET COUNT 137 10^3/UL (140-415); POSITIVE DIFF @See below; RED BLOOD COUNT 3.43 10^6/ul (4.70-6.10); RED CELL DISTRIBUTION WIDTH 15.1 % (11.5-14.5)
[2018-08-24] MEDS: PANTOPRAZOLE 40 MG INJ IV (05:23)
[2018-08-24 05:31] LABS: ALANINE AMINOTRANSFERASE 23 IU/L (13-69); ALBUMIN 1.8 g/dl (3.3-4.9); ALBUMIN/GLOBULIN RATIO 0.75; ALKALINE PHOSPHATASE 81 IU/L (42-121); ANION GAP 4 (5-13); ASPARTATE AMINO TRANSFERASE < 8 IU/L (15-46); BILIRUBIN,INDIRECT 0.3 mg/dl (0-1.1); BILIRUBIN,TOTAL 0.3 mg/dl (0.2-1.3); BLOOD UREA NITROGEN 7 mg/dl (7-20); CALCIUM 7.4 mg/dl (8.4-10.2); CARBON DIOXIDE 30 mmol/L (21-31); CHLORIDE 109 mmol/L (97-110); CREATININE 0.17 mg/dl (0.61-1.24); GLUCOSE 217 mg/dl (70-220); POTASSIUM 3.3 mmol/L (3.5-5.1); SODIUM 143 mmol/L (135-144); TOTAL PROTEIN 4.2 g/dl (6.1-8.1)
[2018-08-24 05:32] LABS: PHOSPHORUS 0.6 mg/dl (2.5-4.9)
[2018-08-24 05:32] LABS: MAGNESIUM 1.6 mg/dl (1.7-2.5)
[2018-08-24] MEDS: MAGNESIUM SULFATE 1 GM/D5W 100 ML IVPB ×3 (06:16→09:32)
[2018-08-24] MEDS: POTASSIUM PHOSPHATE 40 MEQ in SOD CHLORIDE 0.9% 250 ML IVPB (08:02)
[2018-08-24] MEDS: BETAMETHASONE/CLOTRIMAZOLE 15 GM CR TOP (09:32)
[2018-08-24] MEDS: IPRATROPIUM 0.03% 30 ML NASAL SPRAY NASAL (09:32)
[2018-08-24] MEDS: BALSAM PERU/CASTOR OIL 60 GM TUBE TOP (09:33)
[2018-08-24] MEDS: NYSTATIN 15 GM CR TOP (09:33)
[2018-08-24] MEDS: ENOXAPARIN 40 MG/0.4 ML SYG SC (09:45)
[2018-08-24] MEDS ORDERED: POTASSIUM CHLORIDE 50 ML IVPB (10:00)
[2018-08-24] MEDS: POTASSIUM CHLORIDE 40 MEQ in DEXTROSE 5%-0.9% NACL 1,000 ML IV (10:51)
[2018-08-24] MEDS: INSULIN GLARGINE [LANTus] (100 UNITS/ML) SYG SC (11:15)
[2018-08-24] MEDS: FENTAnyl (DRIP) 1000 mcg/100mL 100 ML IV (12:25)
[2018-08-24 14:42] LABS: ANION GAP 4 (5-13); BLOOD UREA NITROGEN 10 mg/dl (7-20); CALCIUM 7.3 mg/dl (8.4-10.2); CARBON DIOXIDE 30 mmol/L (21-31); CHLORIDE 106 mmol/L (97-110); GLUCOSE 299 mg/dl (70-220); MAGNESIUM 2.3 mg/dl (1.7-2.5); PHOSPHORUS 2.2 mg/dl (2.5-4.9); POTASSIUM 3.5 mmol/L (3.5-5.1); SODIUM 140 mmol/L (135-144)
[2018-08-24 14:43] LABS: CREATININE < 0.15 mg/dl (0.61-1.24)
[2018-08-24] MEDS: morphine (DRIP) 100 MG/100 ML 100 ML IV (17:36)
[2018-08-24] MEDS: LORAZEPAM 2 MG INJ IV ×2 (17:54→20:23)
[2018-08-24] MEDS ORDERED: HYDROCORTISONE 100 MG INJ IV (18:00)
[2018-08-25] MEDS: morphine (DRIP) 100 MG/100 ML 100 ML IV ×4 (01:33→17:03)
[2018-08-25] MEDS ORDERED: INSULIN GLARGINE [LANTus] (100 UNITS/ML) SYG SC (08:00)
[2018-08-25] MEDS ORDERED: HYDROmorphONE 0.2 MG/ML PCA IV (13:00)
[2018-08-26] MEDS: morphine (DRIP) 100 MG/100 ML 100 ML IV ×2 (00:37→07:11)
[2018-08-27] MEDS: morphine (DRIP) 100 MG/100 ML 100 ML IV (02:25)
[2018-08-27] MEDS ORDERED: ARTIFICIAL TEARS 15 ML OPH BOTH EYES (11:30)
[2018-08-27] MEDS ORDERED: ALBUTEROL/IPRATROPIUM (NEB) 3 ML AMP HHN (12:00)
[2018-08-27] MEDS ORDERED: ATROPINE 1% 5 ML OPH SL (12:00)
[2018-08-27] MEDS ORDERED: BISACODYL 10 MG SUPP PR (12:00)
[2018-08-27] MEDS ORDERED: ACETAMINOPHEN 650 MG SUPP PR (12:00)
[2018-08-29] MEDS: morphine (DRIP) 100 MG/100 ML 100 ML IV (02:16)
[2018-08-29] MEDS: LORAZEPAM 2 MG INJ IV (11:06)
== END 2018-08-29 22:40 | disposition expired | DRG 870 ==
LOC: ICU 08-19 08:45 → MS1 08-25 07:05 → E/R 17:32 → MS1 20:51 → TEL 21:02
PROC: 0BH17EZ Insertion of Endotracheal Airway into Trachea, Via Natural or Artificial Opening (ICD-10-PCS; principal; 2018-08-16)
PROC: 5A1955Z Respiratory Ventilation, Greater than 96 Consecutive Hours (ICD-10-PCS; 2018-08-16)
PROC: 0W9B30Z Drainage of Left Pleural Cavity with Drainage Device, Percutaneous Approach (ICD-10-PCS; 2018-08-21)
DX: A41.9 Sepsis, unspecified organism (principal); R65.21 Severe sepsis with septic shock; R53.2 Functional quadriplegia; J96.02 Acute respiratory failure with hypercapnia; G93.41 Metabolic encephalopathy; E43 Unspecified severe protein-calorie malnutrition; J18.9 Pneumonia, unspecified organism; E87.2 Acidosis; J93.9 Pneumothorax, unspecified; R57.9 Shock, unspecified; Z68.1 Body mass index [BMI] 19.9 or less, adult; R62.7 Adult failure to thrive; R06.03 Acute respiratory distress; E86.0 Dehydration; R13.10 Dysphagia, unspecified; E87.6 Hypokalemia; G72.41 Inclusion body myositis [IBM]; I10 Essential (primary) hypertension; E78.5 Hyperlipidemia, unspecified; D64.9 Anemia, unspecified; R47.02 Dysphasia; I25.10 Atherosclerotic heart disease of native coronary artery without angina pectoris; I95.9 Hypotension, unspecified; Z66 Do not resuscitate; D69.6 Thrombocytopenia, unspecified; Z51.5 Encounter for palliative care; Z88.8 Allergy status to other drugs, medicaments and biological substances
CPT/HCPCS: 31500; 36415; 36600; 71045; 71275; 80048; 80051; 80053; 80061; 80202; 81001; 82140; 82533; 82803; 82962; 83605; 83690; 83735; 84100; 84132; 84436; 84479; 84484; 85025; 85610; 85730; 87040; 87075; 87081; 87086; 87400; 92526; 92610; 93005; 93306; 93970; 94002; 94003; 94664; 94770; 99285-25; G0378